=== PATIENT | female | born 1935 | race Caucasian/White ===

== ENCOUNTER → 2017-09-12 | Outpatient (CLI) | payer OTHER ==
[~2017-09-12] MED LIST: ALTACE 1.25 M1.25 M1; ASPIRIN81 M2; AZITHROMYCIN 2250 MG PO; CALCIUM 600 +1 EAC1; LOPRESSOR25; NITROQUICK0.4 MG; OMEPRAZOLE 20 M20 M1; SIMVASTATIN20 MG; VOLTAREN GEL 1100 G2 TOP
[2017-09-12 12:59] LABS: URINE BILIRUBIN NEGATIVE (Negative); URINE BLOOD NEGATIVE (Negative); URINE CLARITY CLEAR; URINE COLOR YELLOW; URINE GLUCOSE-RANDOM NEGATIVE (Negative); URINE KETONES NEGATIVE (Negative); URINE LEUKOCYTES 3+ (Negative); URINE NITRITE NEGATIVE (Negative); URINE PROTEIN NEGATIVE (Negative); URINE UROBILINOGEN 0.2 E.U./dl (0.2-1.0)
[2017-09-12 13:02] LABS: ABSOLUTE BASOPHILS 0.1 thou/uL (0.0-0.2); ABSOLUTE EOSINOPHILS 0.2 thou/uL (0.0-0.7); ABSOLUTE LYMPHOCYTES 2.2 thou/uL (0.8-5.3); ABSOLUTE MONOCYTES 0.6 thou/uL (0.0-1.2); ABSOLUTE NEUTROPHILS 3.4 thou/uL (1.6-8.1); BASOPHILS 1.5 %; EOSINOPHILS 2.6 %; HEMATOCRIT 40.9 % (37.0-47.0); HEMOGLOBIN 13.9 gm/dL (12.0-15.0); MCH 32.2 pg (26.0-34.0); MCHC 34.1 g/dL (28.0-37.0); MCV 94.6 fL (80.0-100.0); MONOCYTES 9.5 %; NUCLEATED RBCS 0 /100WBC; PLATELET COUNT* 203 thou/uL (150-400); POLYS 52.4 %; RBC 4.32 mil/uL (4.20-5.00); RDW-CV 12.6 % (10.5-14.5); WBC 6.5 thou/uL (4.0-11.0)
[2017-09-12 13:12] LABS: ALBUMIN 3.7 g/dL (3.4-5.0); CALCIUM 9.2 mg/dL (8.5-10.1); POTASSIUM 4.3 mmol/L (3.5-5.1); TOTAL BILIRUBIN 0.5 mg/dL (<0.1-1.0); TOTAL PROTEIN 7.1 g/dL (6.4-8.2)
[2017-09-12 13:13] LABS: SQUAMOUS 0-3 Few /LPF (0-3); TRANSITIONAL EPITHEL CELL 4-10 Moderate /LPF (None Seen); URINE RBC 0-2 Rare /HPF (0-2)
[2017-09-12 13:14] LABS: BACTERIA 1-9 Few /HPF (None Seen); CASTS None Seen /LPF (None Seen); CRYSTALS None Seen /LPF (None Seen); MUCUS None Seen strn/LPF (None Seen)
== END ==
LOC: M.RAD 12:36
PROVIDERS: Nurse Practitioner Family
DX: R07.9 Chest pain, unspecified (principal)

== ENCOUNTER → 2017-09-28 | Outpatient (CLI) | payer OTHER ==
--- NOTE | 2017-09-28 14:44 | CARDNUC ---
[place] [address] CARDIAC NUCLEAR IMAGING REPORT Name: ARMEN MORALES Room: [facility]#: [id number] Admission: 09/28/17 Attend Phys: Jt Sandra, Discharge: Date of : 37 Date of Service: 09/28/17 1444 Report #: [id number] THIS REPORT FOR: //name// APPROVED REPORT Study performed: 09/28/2017 08:30:00 Exam: Nuclear Stress Test Indication: chest pain Patient Location: Out-Patient Stress Tech: Raquel Valentino Stress Nurse: Jaylin Gracia RN Ht: 5 ft 0 in Wt: 165 lbs BSA: 1.72 m2 BMI: 32.22 Medical History Medical History: cabg, pci, mi hypertlipidemia, hypertension Medications: simvastatin, ramipril, metoprolol Allergies: nkda Cardiac Risk Factors: age, hyperlipidemia, hypertension Previous Cardiac Procedures: cabg, pci Exercise History: Indeterminate Meds Held (24 hrs): metoprolol Stress Test Details Stress Test: Pharmacologic stress was paired with low level exercise. Reason for pharmacologic stress test: physical limitation. HR Resting HR: 67 bpm Max Heart Rate (APMHR): 139 bpm Max HR Achieved: 107 bpm Target HR (85% APMHR): 118 bpm % of APMHR: 76 Recovery HR: 69 bpm HR response to stress: Normal HR response to stress BP Resting BP: 184/82 mmHg Max BP: 204/73 mmHg BP response to stress: Normal blood pressure response [place] [address] CARDIAC NUCLEAR IMAGING REPORT Name: ARMEN MORALES Room: [facility]#: [id number] Admission: 09/28/17 Attend Phys: Jt Sandra, Discharge: Date of : 37 Date of Service: 09/28/17 1444 Report #: [id number] [id number] ECG: Sinus Rhythm Stress ECG: Sinus Rhythm Recovery ECG: Sinus Rhythm Clinical Reason for Termination: Completed protocol Stress Symptoms: none Exercise duration: 0 min sec Exercise capacity: 1 METs Nurse Comments pt had not taken ramipril so med was given to patient prior to testing NM EXAM: Myocardial Perfusion REST/STRESS Imaging Protocol: Rest Tc-99m/Stress Tc-99m 1 day Resting Data Rest SPECT myocardial perfusion imaging was performed in supine position 30 minutes following the intravenous injection of 11.6 mCi of Tc-99m Sestamibi. Time of rest injection: 0855 Time of rest imagin The images were gated to evaluate regional wall motion and calculate left ventricular ejection fraction. Administration Route: IV Administration Site: Right Wrist Pharmacologic Stress Pharmacologic stress test was performed by injecting Regadenoson 0.4 mg IV push followed by the intravenous injection of 32.5 mCi of Tc-99m Sestamibi. Time of stress injection: 1025 Time of stress imagin Administration Route: IV Administration Site: Right Wrist Heart Rate at time of stress injection: 107 bpm. Gated Stress SPECT was performed 40 minutes after stress injection. The images were gated to evaluate regional wall motion and calculate left ventricular ejection fraction. Prone imaging was performed. Study Quality Study: Fair Artifact: Mild [place] [address] CARDIAC NUCLEAR IMAGING REPORT Name: ARMEN MORALES Room: [facility]#: [id number] Admission: 09/28/17 Attend Phys: Jt Sandra, Discharge: Date of : 37 Date of Service: 09/28/17 1444 Report #: [id number] Lung Uptake: Normal Study Data At rest, the left ventricular ejection fraction was 75%.. Post stress, the left ventricular ejection was 76%.. SSS: 2 SRS: 5 SDS: -3 TID = 0.90. Perfusion Review of SPECT images reveals a small mild intensity apical defect and uniform tracer uptake in all other segments on both stress and rest image datasets. No reversible defects are seen. This is likely apical thinning artifact. Images were reviewed using [employer]. Wall Motion normal in all segments Nuclear Conclusion ECG Findings: negative for ischemia Clinical Findings: negative for ischemia Nuclear Findings: negative for ischemia Exercise Capacity: not assessed Left Ventricular Function: normal Risk Study: low Normal perfusion stress test. The defect in the apex is likely artifact. <ELECTRONICALLY SIGNED> By: Jt Sandra MD, FACC 09/28/17 1444 1444 1444 Jt Sandra MD, FACC /INF
== END ==
LOC: M.NUC 09-13 17:15
DX: I20.8 Other forms of angina pectoris (principal); E78.5 Hyperlipidemia, unspecified; I10 Essential (primary) hypertension

== ENCOUNTER 2018-03-16 23:42 | Emergency (ER) | payer OTHER ==
[~2018-03-16] VITALS: Ht 152.4 cm; Wt 74.8 kg
[~2018-03-16 23:42] MED LIST changes: -VOLTAREN GEL 1100 G2 TOP
[2018-03-16 23:58] VITALS: BP 163/66
[2018-03-17] MEDS ORDERED: VOLTAREN GEL 1100 G2 TOP (00:05)
== END 2018-03-17 00:19 | disposition home or self-care (01) ==
LOC: M.ERS 23:42
DX: M13.842 Other specified arthritis, left hand (principal); M77.12 Lateral epicondylitis, left elbow; I10 Essential (primary) hypertension; I25.2 Old myocardial infarction

== ENCOUNTER → 2018-04-01 | Outpatient (CLI) | payer OTHER ==
[~2018-04-01] MED LIST changes: +VOLTAREN GEL 1100 G2 TOP
--- NOTE | 2018-04-01 14:14 | 2DMMODE ---
[place] [address] 2 D/M-MODE ECHOCARDIOGRAM Name: ARMEN MORALES Room: [facility]#: [id number] Admission: 04/01/18 Attend Phys: Johanna Stout, Discharge: Date of : 37 Date of Service: 04/01/18 1413 Report #: [id number] THIS REPORT FOR: //name// APPROVED REPORT Study performed: 04/01/2018 10:27:17 EXAM: Comprehensive 2D, Doppler, and color-flow Echocardiogram Patient Location: Out-Patient Status: routine BSA: 1.72 HR: 68 bpm BP: 122/56 mmHg Other Information Study Quality: Fair Indications Congestive Heart Failure 2D Dimensions IVSd: 11.58 (7-11mm) LVOT Diam: 20.28 (18-24mm) LVDd: 45.22 mm PWd: 10.91 (7-11mm) Ascending Ao: 31.67 (22-36mm) LVDs: 34.69 (25-40mm) Aortic Root: 31.44 mm Volumes Left Atrial Volume (Systole) LA ESV Index: 20.90 mL/m2 Aortic Valve AoV Peak Silvestre.: 1.44 m/s AO Peak Gr.: 8.25 mmHg LVOT Max P.04 mmHg AO Mean Gr.: 4.22 mmHg LVOT Mean P.26 mmHg LVOT Max V: 1.12 m/s AO V2 VTI: 30.87 cm LVOT Mean V: 0.68 m/s HAYLEE (VTI): 2.65 cm2 LVOT V1 VTI: 25.35 cm Mitral Valve E/A Ratio: 0.79 MV Decel. Time: 213.41 ms MV E Max Silvestre.: 0.72 m/s MV PHT: 61.89 [place] [address] 2 D/M-MODE ECHOCARDIOGRAM Name: ARMEN MORALES Room: [facility]#: [id number] Admission: 04/01/18 Attend Phys: Johanna Stout, Discharge: Date of : 37 Date of Service: 04/01/18 1413 Report #: [id number] MVA (PHT): 3.55 cm2 TDI E/Lateral E': 12.00 E/Medial E': 10.29 Medial E' Silvestre.: 0.07 m/s Lateral E' Silvestre.: 0.06 m/s Pulmonary Valve PV Peak Silvestre.: 0.75 m/s PV Peak Gr.: 2.28 mmHg Tricuspid Valve RAP Estimate: 5.00 mmHg TR Peak Gr.: 20.01 mmHg RVSP: 25.01 mmHg PA Pressure: 25.01 mmHg Left Ventricle The left ventricle is normal size. There is normal LV segmental wall motion. There is normal left ventricular wall thickness. Left ventricular systolic function is normal. The left ventricular ejection fraction is within the normal range. LVEF is 60%. Grade I - abnormal relaxation pattern. Right Ventricle The right ventricle is normal size. The right ventricular systolic function is normal. Atria The left atrium size is normal. The right atrium size is normal. Aortic Valve The aortic valve is normal in structure. No aortic regurgitation is present. There is no aortic valvular stenosis. Mitral Valve Mild mitral annular calcification. There is no mitral valve regurgitation noted. No evidence of mitral valve stenosis. Tricuspid Valve The tricuspid valve is normal in structure. Mild tricuspid regurgitation. Pulmonic Valve The pulmonary valve is normal in structure. There is no pulmonic [place] [address] 2 D/M-MODE ECHOCARDIOGRAM Name: ARMEN MORALES Room: [facility]#: [id number] Admission: 04/01/18 Attend Phys: Johanna Stout, Discharge: Date of : 37 Date of Service: 04/01/18 1413 Report #: [id number] Great Vessels The aortic root is normal in size. IVC is normal in size and collapses >50% with inspiration. Pericardium There is no pericardial effusion. <Conclusion> The left ventricle is normal size. There is normal left ventricular wall thickness. Left ventricular systolic function is normal. The left ventricular ejection fraction is within the normal range. LVEF is 60%. Grade I - abnormal relaxation pattern. The right ventricle is normal size. The left atrium size is normal. The aortic valve is normal in structure. Mild mitral annular calcification. There is no mitral valve regurgitation noted. No evidence of mitral valve stenosis. The tricuspid valve is normal in structure. IVC is normal in size and collapses >50% with inspiration. There is no pericardial effusion. There is normal LV segmental wall motion. <ELECTRONICALLY SIGNED> By: Robert Jacobo MD, FACC 04/01/18 1413 1413 141 Robert Jacobo MD, FACC /INF
== END ==
LOC: M.CRD 10:00
DX: I25.10 Atherosclerotic heart disease of native coronary artery without angina pectoris (principal); R60.1 Generalized edema; M79.89 Other specified soft tissue disorders

== ENCOUNTER → 2020-01-27 | Outpatient (CLI) | payer OTHER | LOC: M.ULTRA 09:00 | PROVIDERS: ATTEND Family Medicine | DX: R22.1 Localized swelling, mass and lump, neck (principal) ==

== ENCOUNTER → 2020-05-26 | Outpatient (CLI) | payer OTHER ==
--- NOTE | 2020-05-26 11:19 | 2DMMODE ---
[place] [address] 2 D/M-MODE ECHOCARDIOGRAM Name: ARMEN MORALES Room: [facility]#: [id number] Admission: 05/26/20 Attend Phys: Johanna Stout, Discharge: Date of : 37 Date of Service: 05/26/20 1119 Report #: [id number] THIS REPORT FOR: cc: Harini Thompson MD, Katrina MD Blick, David R. MD [facility] ~ APPROVED REPORT Study performed: 05/26/2020 10:04:09 EXAM: Comprehensive 2D, Doppler, and color-flow Echocardiogram Patient Location: Out-Patient BSA: 1.71 HR: 64 bpm BP: 122/78 mmHg Other Information Study Quality: Fair Indications Peripheral Edema 2D Dimensions IVSd: 12.09 (7-11mm) LVOT Diam: 19.96 (18-24mm) LVDd: 42.20 mm PWd: 11.54 (7-11mm) Ascending Ao: 28.56 (22-36mm) LVDs: 25.16 (25-40mm) Aortic Root: 29.42 mm Volumes Left Atrial Volume (Systole) LA ESV Index: 17.60 mL/m2 Aortic Valve AoV Peak Silvestre.: 1.34 m/s AO Peak Gr.: 7.23 mmHg LVOT Max P.29 mmHg AO Mean Gr.: 3.68 mmHg LVOT Mean P.74 mmHg LVOT Max V: 0.91 m/s AO V2 VTI: 27.29 cm LVOT Mean V: 0.61 m/s HAYLEE (VTI): 2.40 cm2 LVOT V1 VTI: 20.98 cm Mitral Valve E/A Ratio: 0.76 [place] [address] 2 D/M-MODE ECHOCARDIOGRAM Name: MORALESSADAF Room: [facility]#: [id number] Admission: 05/26/20 Attend Phys: Johanna Stout, Discharge: Date of : 37 Date of Service: 05/26/20 1119 Report #: [id number] MV Decel. Time: 176.12 ms MV E Max Silvestre.: 0.55 m/s MV PHT: 51.07 ms MVA (PHT): 4.31 cm2 TDI E/Lateral E': 9.17 E/Medial E': 7.86 Medial E' Silvestre.: 0.07 m/s Lateral E' Silvestre.: 0.06 m/s Pulmonary Valve PV Peak Silvestre.: 0.73 m/s PV Peak Gr.: 2.15 mmHg Tricuspid Valve RAP Estimate: 5.00 mmHg TR Peak Gr.: 18.58 mmHg RVSP: 23.58 mmHg PA Pressure: 23.58 mmHg Left Ventricle The left ventricle is normal size. endocardium was not well visualized making segmental wall motion analysis difficult Mild concentric left ventricular hypertrophy. Left ventricular systolic function is normal. The left ventricular ejection fraction is within the normal range. Grade I - abnormal relaxation pattern. Right Ventricle The right ventricle is normal size. The right ventricular systolic function is normal. Atria The left atrium size is normal. The right atrium size is normal. Aortic Valve The aortic valve is normal in structure. No aortic regurgitation is present. There is no aortic valvular stenosis. Mitral Valve The mitral valve is normal in structure. There is no mitral valve regurgitation noted. No evidence of mitral valve stenosis. Tricuspid Valve The tricuspid valve is normal in structure. Mild tricuspid regurgitation[place] [address] 2 D/M-MODE ECHOCARDIOGRAM Name: ARMEN MORALES Room: [facility]#: [id number] Admission: 05/26/20 Attend Phys: Johanna Stout, Discharge: Date of : 37 Date of Service: 05/26/20 1119 Report #: [id number] The pulmonary valve is normal in structure. There is no pulmonic valvular regurgitation. Great Vessels The aortic root is normal in size. IVC is normal in size and collapses >50% with inspiration. Pericardium There is no pericardial effusion. <Conclusion> Mild concentric left ventricular hypertrophy. Left ventricular systolic function is normal. The left ventricular ejection fraction is within the normal range. <ELECTRONICALLY SIGNED> By: Celso Mccracken MD, FACC 05/26/20 1119 18 18 Celso Mccracken MD, FACC /INF
== END ==
LOC: M.CRD 10:00
PROVIDERS: ATTEND Nurse Practitioner
DX: I07.1 Rheumatic tricuspid insufficiency (principal); M79.89 Other specified soft tissue disorders